=== PATIENT | male | born 1970 ===

== ENCOUNTER 2017-07-31 17:38 | Observation (INO) | payer OTHER ==
[~2017-07-31] VITALS: Ht 182.9 cm; Wt 113.9 kg
[2017-07-31 18:32] LABS: MAGNESIUM 1.7 mg/dL (1.6-2.3)
[2017-07-31 18:45] LABS: TROPONIN-I < 0.012 ng/mL (0.000-0.034)
[2017-07-31 19:07] VITALS: BP 127/92; PULSE 70; TEMP 98.1
[2017-07-31 22:25] VITALS: BP 113/74; PULSE 64; TEMP 98.6
[2017-07-31 23:16] VITALS: BP 119/77; PULSE 59; TEMP 98.3
[2017-08-01] VITALS (15 sets, daily range): BP systolic 113–134; BP diastolic 63–88; PULSE 55–87; TEMP 97.6–98.7
[2017-08-01 06:08] LABS: BASO # 0.1 (0.0-0.2); BASO % 0.9 % (0.0-2.0); EOS # 0.1 (0.0-0.7); EOS % 1.7 % (0-4.0); GRAN # 2.6 (1.4-6.5); GRAN % 48.7 % (42.2-75.2); HEMATOCRIT 44.2 % (42.0-52.0); HEMOGLOBIN 14.9 g/dl (13.5-18.0); LYMPH % 37.5 % (20.0-51.0); MEAN CELL VOLUME 89 fl (80.0-100.0); MEAN CORPUSCULAR HEMOGLOBIN 30 pg (27.0-31.0); MEAN CORPUSCULAR HGB CONC 34 g/dl (33.0-37.0); MEAN PLATELET VOLUME 9.6 fl (7.4-10.4); MONO # 0.6 (0.1-0.6); PLATELET COUNT 230 K/mm3 (130-400); RED BLOOD COUNT 4.95 M/mm3 (4.20-5.60); REDCELL DISTRIBUTION WIDTH-CV 12.6 % (11.5-14.5)
[2017-08-01 06:21] LABS: ALANINE AMINOTRANSFERASE 30 U/L (21-72); ALBUMIN 3.9 gm/dL (3.5-5.0); ALKALINE PHOSPHATASE 46 U/L (50-136); ANION GAP 10 mmol/L (7-16); AST,SGOT 26 U/L (15-37); BILIRUBIN,TOTAL 1.8 mg/dL (0.0-1.0); BLOOD UREA NITROGEN 15 mg/dL (9-20); CALCIUM 8.4 mg/dL (8.4-10.2); CARBON DIOXIDE 27 mmol/L (22-30); CHLORIDE 102 mmol/L (98-107); CHOLESTEROL 215 mg/dL (120-200); CHOLESTEROL RISK RATIO 3.8; CREATININE, serum 0.89 mg/dL (0.66-1.25); GLUCOSE 92 mg/dL (74-106); HDL CHOLESTEROL 56 mg/dL; LDL CHOLESTEROL 138 mg/dL; POTASSIUM 3.7 mmol/L (3.4-5.0); SODIUM 140 mmol/L (137-145); TOTAL PROTEIN 6.9 gm/dL (6.4-8.2); TRIGLYCERIDE 103 mg/dL
[2017-08-01 06:27] LABS: INR 1.1 (0.8-3.0); PROTHROMBIN TIME 12.8 SECONDS (9.7-12.8)
[2017-08-01 06:37] LABS: TROPONIN-I < 0.012 ng/mL (0.000-0.034)
[2017-08-02 00:17] VITALS: BP 120/72; PULSE 55; TEMP 97.8
[2017-08-02 05:10] VITALS: BP 112/72; PULSE 60; TEMP 97.5
[2017-08-02 09:30] VITALS: BP 116/76; PULSE 72; TEMP 98
[2017-08-02] MEDS ORDERED: MULTAQ400 MG PO (10:22)
[2017-08-02] MEDS ORDERED: ASPIRIN E.C. 8181 MG PO (10:22)
== END 2017-08-02 12:05 | disposition home or self-care (01) ==
LOC: SURG 17:38
PROVIDERS: Nurse Practitioner Family
DX: R07.9 Chest pain, unspecified (principal); I48.0 Paroxysmal atrial fibrillation; Z87.891 Personal history of nicotine dependence; Z79.82 Long term (current) use of aspirin; I08.1 Rheumatic disorders of both mitral and tricuspid valves
CPT/HCPCS: 99223-AI; 99231-AI; 99232-AI; A9502; G0378; J1644; J1650; J2785; J7030

== ENCOUNTER → 2020-01-27 | Outpatient (CLI) | payer OTHER ==
[~2020-01-27] MED LIST: ASPI325T6 PO; ASPIRIN E.C. 8181 MG PO; MULTAQ400 MG PO; TAMBOCOR 1100 MG/TAB PO; TOPROL XL 50MG50 MG PO
== END ==
LOC: MHCPAIN 12:49
DX: M47.812 Spondylosis without myelopathy or radiculopathy, cervical region (principal); M54.2 Cervicalgia; G89.29 Other chronic pain; M54.12 Radiculopathy, cervical region
CPT/HCPCS: G0463